=== PATIENT | female | born 1995 | race Two or more races ===

== ENCOUNTER 2016-12-14 22:16 | Emergency (ER) | payer OTHER ==
[2016-12-14 22:24] VITALS: BP 94/67; PULSE 66; RESP 16; TEMP 97.7; O2SAT 98
[2016-12-14] MEDS ORDERED: PROPARACAINE 0.5% 15 ML OPHT DROP OP ONE (23:07)
[2016-12-14] MEDS ORDERED: FLUORESCEIN SODIUM 1 MG STRIP OP ONE (23:07)
--- NOTE | 2016-12-14 23:30 | EDPHY ---
H & P Time Seen by Provider: 12/14/16 22:56 HPI/ROS: CHIEF COMPLAINT: right eyelid complaint HISTORY OF PRESENT ILLNESS: 21-year-old female presents emergency department complaining of a dry upper eyelid for the past month. Patient reports occasionally it itches. She denies foreign body sensation, eye pain, eye redness, fevers, nasal congestion, recent cough or cold. She does not wear contact lenses. She denies blurred vision, she denies other complaints. REVIEW OF SYSTEMS: A comprehensive 10 point review of systems is otherwise negative aside from elements mentioned in the history of present illness. Smoking Status: Never smoked Physical Exam: Pupils: PERRLA, EOMI, no nystagmus, no trauma, no injection. Lids: right eyelid with mild edema and dryness with few scales Skin: no periorbital erythemano vesicles Conjunctivae: Not injected, not icteric, no discharge Constitutional: Initial Vital Signs Temperature (C) 36.5 C 12/14/16 22:20 Heart Rate 66 12/14/16 22:20 Respiratory Rate 16 12/14/16 22:20 Blood Pressure 94/67 L 12/14/16 22:20 O2 Sat (%) 98 12/14/16 22:20 O2 Delivery Mode Room Air Allergies/Adverse Reactions: No Known Allergies Allergy (Unverified 12/14/16 22:20) Home Medications: Medication Instructions Recorded VITAMIN D 12/14/16 MDM/Departure - MDM Medications Given: Discontinued Medications Fluorescein Sodium ([id number]) 1 mg OP EDNOW ONE Stop: 12/14/16 23:08 Last Admin: 12/14/16 23:15 Dose: 1 mg Proparacaine HCl (Alcaine 0.5%) 1 drops OP EDNOW ONE Stop: 12/14/16 23:08 Last Admin: 12/14/16 23:15 Dose: 1 drop - Depart Disposition: Home, Routine, Self-Care Clinical Impression: Blepharitis of eyelid of right eye Qualifiers: Blepharitis type: unspecified type Eyelid: upper Qualifier Code: (H01.001) Unspecified blepharitis right upper eyelid Condition: Good Instructions: Blepharitis (ED) Additional Instructions: Wash your eyelids with baby shampoo twice daily, warm compresses to your eyelids 3 to 4 times a day with a warm wet washcloth. Use artificial tears multiple times a day as needed for eye dryness. Place Vaseline to your eyelid as needed. Follow up with the drilling inspector in the next week. Return to the emergency department for worsening symptoms, fevers, surrounding redness, pain, any other questions or concerns. Referrals: Higinio Crow MD [Medical Doctor] - As per Instructions (Finishing Room Supervisor on- call)
== END 2016-12-14 23:30 | disposition home or self-care (01) ==
DX: H01.001 Unspecified blepharitis right upper eyelid (principal)

== ENCOUNTER 2017-09-18 22:03 | Emergency (ER) | payer OTHER ==
[2017-09-18 22:09] VITALS: RESP 16; TEMP 98.1
--- NOTE | 2017-09-18 22:10 | EDPHY ---
H & P Stated Complaint: Anxiety attack Time Seen by Provider: 09/18/17 22:10 HPI/ROS: HPI: This is a 22-year-old female who presents with Chief Complaint: Anxiety attack Location: Body Quality: Dyspnea Duration: Prior to arrival Signs and Symptoms: No chest pain, + body felt, no headache, no fever, no dysuria Timing: Sudden, resolved Severity: Moderate Context: Patient was in her apartment getting ready to take a shower when all of a sudden she felt her body go numb and she started breathing well fast could not catch her breath. EMS was called by her roommates who arrived and asked patient to slow her breathing pattern. She denies fever/chills/chest pain/ palpitation. She has had no recent long distance travel. She does have a history of panic attacks in the past but none in the last 6 months. She denies having anxiety currently or being under increased stress. She is a local college student. She does not take any control pills. Denies being sexually active. LMP 1-7 days ago. She does not have a primary care provider in the area. Modifying Factors: Slow in her breathing pattern Comment: ROS: see HPI Constitutional: No fever, no chills, no weight loss Eyes: No blurred vision Respiratory: + shortness of breath, no cough Cardiovascular: No chest pain Gastrointestinal: No nausea, no vomiting, no diarrhea Genitourinary: No dysuria Extremities: No myalgias Neurologic: No weakness, no numbness Skin: No rashes Hematologic: No bruising, no bleeding MEDICAL/SURGICAL/SOCIAL HISTORY: Medical history: Generally healthy. Does not take any regular medications. Surgical history: Denies Social history: Local called to student CONSTITUTIONAL: Pleasant extremely well-appearing young adult [place] female, awake and alert, no obvious distress HEENT: Atraumatic and normocephalic, PERRL, EOMI. Tympanic membranes clear. Oropharynx clear, no exudate and moist pink mucosa. Airway patent. No lymphadenopathy. No meningismus. Cardiovascular: Normal S1/S2, regular rate, regular rhythm, without murmur rub or gallop. PULMONARY/CHEST: Symmetrical and nontender. Clear to auscultation bilaterally. Good air movement. No accessory muscle usage. ABDOMEN: Soft, nondistended, nontender, no rebound, no guarding, no peritoneal signs, no masses or organomegaly. No CVAT. EXTREMITIES: 2/2 pulses, strength 5/5, no deformities, no clubbing, no cyanosis or edema. NEUROLOGICAL: no focal neuro deficits. GCS 15. SKIN: Warm and dry, no erythema. no rash. Good capillary refill. Source: Patient Exam Limitations: No limitations - Personal History LMP (Females 10-55): 1-7 Days Ago Current Tetanus/Diphtheria Vaccine: Yes Current Tetanus Diphtheria and Acellular Pertussis (TDAP): Yes Tetanus Vaccine Date: 2014 - Medical/Surgical History Hx Asthma: No Hx Chronic Respiratory Disease: No Hx Diabetes: No Hx Cardiac Disease: No Hx Renal Disease: No Hx Cirrhosis: No Hx Alcoholism: No Hx HIV/AIDS: No Hx Splenectomy or Spleen Trauma: No Other PMH: eczema, anxity - Social History Smoking Status: Never smoked Constitutional: Initial Vital Signs Temperature (C) 36.7 C 09/18/17 22:08 Heart Rate 81 09/18/17 22:08 Respiratory Rate 16 09/18/17 22:08 Blood Pressure 115/82 H 09/18/17 22:08 O2 Sat (%) 99 09/18/17 22:08 O2 Delivery Mode Room Air Allergies/Adverse Reactions: No Known Allergies Allergy (Unverified 09/18/17 22:07) Home Medications: Medication Instructions Recorded VITAMIN D 12/14/16 Medical Decision Making Procedures: 12 lead EKG: Indication: Dyspnea Rhythm: Normal sinus rhythm, rate 59 beats per minute [place]: Normal Intervals: Normal QRS: Normal ST segments: Normal INTERPRETATION: Normal EKG The 12 lead EKG was interpreted by myself and with attending. ED Course/Re-evaluation: Labs and EKG ordered Patient's symptoms have completely resolved upon arrival to the ER. No signs of pulmonary embolism/anemia/electrolyte imbalance/acute kidney injury/ /arrhythmia Advised to follow up with [facility] to establish care. Differential Diagnosis: Differential diagnosis includes but is not limited to pulmonary embolism, hyperventilation syndrome, anxiety. - Data Points Laboratory Results: Laboratory Results 09/18/17 22:15 09/18/17 22:15 09/18/17 09/18/17 09/18/17 22:15 22:15 22:15 WBC RBC Hgb Hct MCV MCH MCHC RDW Plt Count MPV Neut % (Auto) Lymph % (Auto) [place] % (Auto) Eos % (Auto) Baso % (Auto) Nucleat RBC Rel Count Absolute Neuts (auto) Absolute Lymphs (auto) Absolute Monos (auto) Absolute Eos (auto) Absolute Basos (auto) Absolute Nucleated RBC Immature Gran % Immature Gran # D-Dimer < 0.27 ug/mLFEU ug/mLFEU (0.00-0.50) Sodium 143 mEq/L mEq/L (134-144) Potassium 3.7 mEq/L mEq/L (3.5-5.2) Chloride 102 mEq/L mEq/L (97-110) Carbon Dioxide 23 mEq/l mEq/l (22-31) Anion Gap 18 mEq/L H mEq/L (8-16) BUN 9 mg/dL mg/dL (7-23) Creatinine 1.0 mg/dL mg/dL (0.6-1.0) Estimated GFR > 60 Glucose 102 mg/dL H mg/dL (70-100) Calcium 10.3 mg/dL mg/dL (8.5-10.4) Beta HCG, Qual NEGATIVE 09/18/17 22:15 WBC 6.66 10^3/uL 10^3/uL (3.80-9.50) RBC 5.28 10^6/uL 10^6/uL (4.18-5.33) Hgb 15.1 g/dL g/dL (12.6-16.3) Hct 44.8 % % (38.0-47.0) MCV 84.8 fL fL (81.5-99.8) MCH 28.6 pg pg (27.9-34.1) MCHC 33.7 g/dL g/dL (32.4-36.7) RDW 13.2 % % (11.5-15.2) Plt Count 238 10^3/uL 10^3/uL (150-400) MPV 10.9 fL fL (8.7-11.7) Neut % (Auto) 44.0 % % (39.3-74.2) Lymph % (Auto) 47.4 % H % (15.0-45.0) [place] % (Auto) 6.6 % % (4.5-13.0) Eos % (Auto) 1.2 % % (0.6-7.6) Baso % (Auto) 0.6 % % (0.3-1.7) Nucleat RBC Rel Count 0.0 % % (0.0-0.2) Absolute Neuts (auto) 2.93 10^3/uL 10^3/uL (1.70-6.50) Absolute Lymphs (auto) 3.16 10^3/uL H 10^3/uL (1.00-3.00) Absolute Monos (auto) 0.44 10^3/uL 10^3/uL (0.30-0.80) Absolute Eos (auto) 0.08 10^3/uL 10^3/uL (0.03-0.40) Absolute Basos (auto) 0.04 10^3/uL 10^3/uL (0.02-0.10) Absolute Nucleated RBC 0.00 10^3/uL 10^3/uL (0-0.01) Immature Gran % 0.2 % % (0.0-1.1) Immature Gran # 0.01 10^3/uL 10^3/uL (0.00-0.10) D-Dimer Sodium Potassium Chloride Carbon Dioxide Anion Gap BUN Creatinine Estimated GFR Glucose Calcium Beta HCG, Qual Departure - Departure Disposition: Home, Routine, Self-Care Clinical Impression: Hyperventilation syndrome Condition: Good Instructions: Anxiety (ED), Panic Attack (ED) Additional Instructions: Your lab work and EKG were completely normal today. Please follow up with [facility] to establish primary care. Reduce stress in your life as much as possible. If you do have a panic attack, sit down and try to slow your breathing pattern. Referrals: [facility],. [Clinic] - As per Instructions
[2017-09-18 22:34] LABS: PLATELET COUNT 238 10^3/uL (150-400)
--- NOTE | 2017-09-18 22:42 | CPEKG ---
Heart Rate: 59 RR Interval: 1017 P-R Interval: 168 QRSD Interval: 86 QT Interval: 412 QTC Interval: 409 P [place]: 72 QRS [place]: 81 T Wave [place]: 33 EKG Severity - NORMAL ECG - EKG Impression: SINUS RHYTHM Electronically Signed By: David Harrington 18-Sep-2017 23:04:50
[2017-09-18 23:12] VITALS: BP 116/67; PULSE 72; O2SAT 97
== END 2017-09-18 23:12 | disposition home or self-care (01) ==
LOC: EDUNIT#
DX: R06.4 Hyperventilation (principal)